=== PATIENT | female | born 1995 | race Caucasian/White ===

== ENCOUNTER 2022-05-11 06:20 | Emergency (ER) | payer MEDICAID, OTHER ==
[~2022-05-11] VITALS: Ht 170.2 cm; Wt 65.8 kg
[2022-05-11 07:00] LABS: BASOPHILS # (AUTO) 0.1 10^3/uL (0.0-0.1); BASOPHILS % (AUTO) 1 % (0-10); EOSINOPHILS # (AUTO) 0.1 10^3/uL (0.0-0.3); EOSINOPHILS % (AUTO) 1 % (0-10); HEMATOCRIT 36 % (35-52); HEMOGLOBIN 12.6 g/dL (11.5-16.0); LYMPHOCYTES # (AUTO) 2.9 10^3/uL (1.0-4.0); LYMPHOCYTES % (AUTO) 23 % (12-44); MEAN CORPUSCULAR HEMOGLOBIN 30 pg (25-34); MEAN CORPUSCULAR HGB CONC 35 g/dL (32-36); MEAN CORPUSCULAR VOLUME 86 fL (80-99); MEAN PLATELET VOLUME 9.1 fL (9.0-12.2); MONOCYTES # (AUTO) 0.7 10^3/uL (0.0-1.0); MONOCYTES % (AUTO) 6 % (0-12); NEUTROPHILS # (AUTO) 8.7 10^3/uL (1.8-7.8); NEUTROPHILS % (AUTO) 69 % (42-75); PLATELET COUNT 286 10^3/uL (130-400); WHITE BLOOD COUNT 12.6 10^3/uL (4.3-11.0)
[2022-05-11] MEDS ORDERED: LACTATED RINGERS 1,000 ML IV ONE (07:00)
[2022-05-11] MEDS ORDERED: ONDANSETRON 4 MG/2 ML (SDV) Z0FRAN IVP ONE (07:00)
[2022-05-11 07:09] LABS: POTASSIUM 3.7 MMOL/L (3.6-5.0)
[2022-05-11 07:11] LABS: CALCIUM 9.1 MG/DL (8.5-10.1)
[2022-05-11 07:12] LABS: TOTAL PROTEIN 7.2 GM/DL (6.4-8.2)
[2022-05-11 07:14] LABS: BILIRUBIN,TOTAL 0.4 MG/DL (0.1-1.0)
[2022-05-11 07:15] LABS: CREATININE SERUM 0.69 MG/DL (0.60-1.30)
[2022-05-11] MEDS ORDERED: fentaNYL INJ 100 MCG/2 ML AMP IVP ONE (07:15)
--- NOTE | 2022-05-11 07:19 | ED Abdominal Pain ---
General Chief Complaint: - Reproductive Stated Complaint: KIDNEY STONE,13 WKS PREG Nursing Triage Note: PT AMB TO RM 7 W C/O FLANK PAIN R/T KIDNEY STONES DX APPROX 4 WKS AGO. PT REPORTS PAIN HAS WORSENED SX 0800 YESTERDAY, LAST PO HYDROCODONE AT 0240 THIS AM. PT ALSO C/O N/V, A&OX4, APPROX 13 WKS . Source of Information: Patient Exam Limitations: No Limitations History of Present Illness Date Seen by Provider: May 11, 2022 Time Seen by Provider: 06:40 Initial Comments Patient to the ER by private conveyance with her significant other chief complaint that since about 8:00 yesterday she has had mounting pain not controlled by her hydrocodone. It is in her left flank and abdomen. It is associated with a kidney stone she has known about for about 4 weeks. Her kidney stone was originally diagnosed in [place] at the ER by CT and was measured at 5 mm in the proximal one third of her left ureter. She is with an LMP of 02/06/2022 putting her at 13 weeks and 3 days. She has a history of 1 miscarriage. No abdominal surgeries. No bowel symptoms. Her nausea has gotten so bad that she is not able to keep anything down despite Reglan that she was sent home with. She tried to follow-up with a urologist in [place] however he told her that it was 5 mm and should pass on its own and she would not have any procedures indicated until after her . She has been using hydrocodone every 6 hours which has been working well for her pain. She now rates it as about a 7-8 out of 10 and getting worse. Allergies and Home Medications Allergies Coded Allergies: No Known Drug Allergies (Unverified , 05/11/22) Patient Home Medication List Home Medication List Reviewed: Yes Cephalexin (Cephalexin) 500 Mg Tablet, 500 MG PO BID Prescribed by: AURELIA GARCIA on 05/11/22 0829 Hydrocodone/Acetaminophen (Hydrocodone-Acetamin 5-325 mg) 5 Mg-325 Mg Tablet, 1- 2 TAB PO Q6H PRN for PAIN-MODERATE (5-7) Prescribed by: AURELIA GARCIA on 05/11/22 0830 Ondansetron (Ondansetron Odt) 4 Mg Tab.rapdis, 4 MG PO Q6H PRN for NAUSEA/VOMITING Prescribed by: AURELIA GARCIA on 05/11/22 0829 Review of Systems Review of Systems Constitutional: No chills, No diaphoresis EENTM: No Blurred Vision, No Double Vision Respiratory: Denies Cough, Denies Shortness of Air Cardiovascular: Denies Chest Pain, Denies Lightheadedness Gastrointestinal: See HPI, Abdominal Pain; Denies Constipated, Denies Diarrhea; Nausea, Poor Fluid Intake, Vomiting Genitourinary: Denies Burning, Denies Discharge Musculoskeletal: No back pain, No joint pain All Other Systems Reviewed Negative Unless Noted: Yes Past Ioezyav-Qmcklc-Hmpqjm Hx Patient Social History Tobacco Use?: No Use of E-Cig and/or Vaping dev: No Substance use?: No Alcohol Use?: No Immunizations Up To Date Influenza Vaccine Up-to-Date: Yes; Up-to-Date First/Initial COVID19 Vaccinat: 2020 Second COVID19 Vaccination Zen: 2020 Third COVID19 Vaccination Date: 2020 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 oz. kg; 22.00 BMI Method: General Appearance: WD/WN, mild distress HEENT: PERRL/EOMI, pharynx normal Neck: full range of motion, normal inspection Respiratory: no respiratory distress, no accessory muscle use Cardiovascular: normal peripheral pulses, regular rate, rhythm Neurologic/Psychiatric: alert, normal mood/affect, oriented x 3 Skin: normal color, warm/dry Progress/Results/Core Measures Results/Orders Lab Results Laboratory Tests Test 05/11/22 06:40 05/11/22 07:50 Range/Units White Blood Count 12.6 H 4.3-11.0 10^3/uL Red Blood Count 4.16 3.80-5.11 10^6/uL Hemoglobin 12.6 11.5-16.0 g/dL Hematocrit 36 35-52 % Mean Corpuscular Volume 86 80-99 fL Mean Corpuscular Hemoglobin 30 25-34 pg Mean Corpuscular Hemoglobin Concent 35 32-36 g/dL Red Cell Distribution Width 13.0 10.0-14.5 % Platelet Count 286 130-400 10^3/uL Mean Platelet Volume 9.1 9.0-12.2 fL Immature Granulocyte % (Auto) 1 % Neutrophils (%) (Auto) 69 42-75 % Lymphocytes (%) (Auto) 23 12-44 % Monocytes (%) (Auto) 6 0-12 % Eosinophils (%) (Auto) 1 0-10 % Basophils (%) (Auto) 1 0-10 % Neutrophils # (Auto) 8.7 H 1.8-7.8 10^3/uL Lymphocytes # (Auto) 2.9 1.0-4.0 10^3/uL Monocytes # (Auto) 0.7 0.0-1.0 10^3/uL Eosinophils # (Auto) 0.1 0.0-0.3 10^3/uL Basophils # (Auto) 0.1 0.0-0.1 10^3/uL Immature Granulocyte # (Auto) 0.1 0.0-0.1 10^3/uL Sodium Level 133 L 135-145 MMOL/L Potassium Level 3.7 3.6-5.0 MMOL/L Chloride Level 106 98-107 MMOL/L Carbon Dioxide Level 18 L 21-32 MMOL/L Anion Gap 9 5-14 MMOL/L Blood Urea Nitrogen 9 7-18 MG/DL Creatinine 0.69 0.60-1.30 MG/DL Estimat Glomerular Filtration Rate 123 BUN/Creatinine Ratio 13 Glucose Level 95 70-105 MG/DL Calcium Level 9.1 8.5-10.1 MG/DL Corrected Calcium 9.1 8.5-10.1 MG/DL Total Bilirubin 0.4 0.1-1.0 MG/DL Aspartate Amino Transf (AST/SGOT) 21 5-34 U/L Alanine Aminotransferase (ALT/SGPT) 16 0-55 U/L Alkaline Phosphatase 55 40-136 U/L C-Reactive Protein High Sensitivity 1.12 H 0.00-0.50 MG/DL Total Protein 7.2 6.4-8.2 GM/DL Albumin 4.0 3.2-4.5 GM/DL Urine Color YELLOW Urine Clarity CLEAR Urine pH 6.5 5-9 Urine Specific [place] 1.010 L 1.016-1.022 Urine Protein NEGATIVE NEGATIVE Urine Glucose (UA) NEGATIVE NEGATIVE Urine Ketones NEGATIVE NEGATIVE Urine Nitrite NEGATIVE NEGATIVE Urine Bilirubin NEGATIVE NEGATIVE Urine Urobilinogen 0.2 < = 1.0 MG/DL Urine Leukocyte Esterase NEGATIVE NEGATIVE Urine RBC (Auto) 1+ H NEGATIVE Urine RBC 5-10 H /HPF Urine WBC 2-5 /HPF Urine Squamous Epithelial Cells 2-5 /HPF Urine Crystals NONE /LPF Urine Bacteria FEW H /HPF Urine Casts NONE /LPF Urine Mucus NEGATIVE /LPF Urine Culture Indicated YES My Orders Orders - AURELIA GARCIA Ua Culture If Indicated (05/11/22 06:30) Urine Bedside (05/11/22 06:30) Cbc With Automated Diff (05/11/22 06:53) Comprehensive Metabolic Panel (05/11/22 06:53) Hs C Reactive Protein (05/11/22 06:53) Ed Iv/Invasive Line Start (05/11/22 06:54) Lactated Ringers (Lr 1000 Ml Iv Solution (05/11/22 07:00) Ondansetron Injection (Zofran Injectio (05/11/22 07:00) Abdomen/Kub 1view (05/11/22 07:11) Fentanyl Inj (Sublimaze Injection) (05/11/22 07:15) Us Renal Limited [id number] (05/11/22 07:53) Ed Iv/Invasive Line Start (05/11/22 07:53) Urine Culture (05/11/22 07:50) Medications Given in ED Current Medications Medications Dose Ordered Sig/Hilda Route Start Time Stop Time Status Last Admin Dose Admin Fentanyl Citrate 50 mcg ONCE ONCE IVP 05/11/22 07:15 05/11/22 07:16 DC 05/11/22 07:30 50 MCG Lactated Ringer's 1,000 ml @ 0 mls/hr Q0M ONCE IV 05/11/22 07:00 05/11/22 07:01 DC 05/11/22 06:59 0 MLS/HR Ondansetron HCl 4 mg ONCE ONCE IVP 05/11/22 07:00 05/11/22 07:01 DC 05/11/22 06:59 4 MG Vital Signs/I&O 05/11/22 06:30 Temp 36.8 Pulse 89 Resp 20 B/P (MAP) 123/83 (96) Pulse Ox 97 O2 Delivery Room Air Blood Pressure Mean: 96 Progress Progress Note #1: Time: 07:18 Progress Note We will work to get her pain and nausea under control give her a liter of fluids and get a plain film to see if the kidney stone has moved. 50 mcg of fentanyl, 4 of IV ondansetron, lactated Ringer's 1 L. Progress Note #2: Time: 07:57 Progress Note Patient's pain is significant better. Nausea is gone. Her fluids are almost on. Her labs are reviewed. She has produced a urine but we have not seen the results yet. Her x-ray fails to demonstrate a calculus consistent with ureteral calculus. Suspect either the stone is moved and passed or we cannot see it so we will obtain ultrasound to look for secondary characteristics such as significant hydronephrosis/hydroureter. Other possibilities include a UTI which will be seen on urinalysis. Progress Note #3: Time: 08:30 Progress Note On subsequent exam the patient is feeling better. Her pain and nausea are under control. We are going to give her some fluids to try and drink. Ultrasound does not reveal significant hydroureter and the lack of x-ray evident ureteral calculus makes this provider suspect that she has passed and/or moved her stone. Expectations of been given. We are going to cover her with some antibiotics for a week to prevent infection and provide her with a new dosing for pain medication as well as ondansetron which seem to work well for her. Diagnostic Imaging Diagonstic Imaging: Xray Plain Films/CT/US/NM/MRI: abdomen (KUB 1 view) Comments NAME: CARMEL SWEET [facility] REC#: [id number] PT STATUS: REG ER : 1995 PHYSICIAN: AURELIA GARCIA MD ADMIT DATE: 05/11/22/ER Draft Date of Exam:05/11/22 ABDOMEN/KUB 1VIEW HISTORY: Abdominal pain COMPARISON: None TECHNIQUE: Frontal view the abdomen FINDINGS: Reportedly about 13 weeks . The patient and the ordering provider were aware and consent was given. No distended loops of bowel are seen. There is no large collection of free air. No calculi are identified in the region of the kidneys or the expected course of the ureters. No acute osseous abnormality is seen. IMPRESSION: 1. No acute abnormality is seen in the abdomen. Dictated on workstation # [id number] Dict: 05/11/22 0746 Trans: 05/11/22 0752 [facility] [id number] Interpreted by: JONO MADRIGAL MD Electronically signed by: Reviewed: Reviewed by Me Diagonstic Imaging: Ultrasound Plain Films/CT/US/NM/MRI: abdomen (Left kidney) Comments Mild amount of hydronephrosis but ureter was not well visualized by ultrasound. [facility] [place] NAME: CARMEL SWEET [facility] REC#: [id number] PT STATUS: REG ER : 1995 PHYSICIAN: AURELIA GARCIA MD ADMIT DATE: 05/11/22/ER Signed Date of Exam:05/11/22 US RENAL LIMITED [id number] US RENAL LIMITED [id number] INDICATION: Left kidney stone COMPARISON: None available. TECHNIQUE: Grayscale and color Doppler imaging of the left kidney was performed FINDINGS: There is mild separation of the renal sinus fat. No blunting of the calyces. No shadowing echogenic calculi or perinephric fluid collection on the left. IMPRESSION: Mild left hydronephrosis. Dictated by: Dictated on workstation # [id number] Dict: 05/11/22 0835 Trans: 05/11/22 0836 [facility] [id number] Interpreted by: ADELITA SWIFT MD Electronically signed by: ADELITA SWIFT MD 05/11/22835 Reviewed: Reviewed by Me Departure Impression Primary Impression: Kidney stone on left side Disposition: 01 HOME, SELF-CARE Condition: Stable Departure-Patient Inst. Decision time for Depature: 08:42 Referrals: NO,LOCAL PHYSICIAN (PCP/Family) Primary Care Physician Patient Instructions: Kidney Stones (DC) Add. Discharge Instructions: I cannot see the kidney stone today however given your significant pain it is very possible that the kidney stone has moved and passed or is about to pass. I suspect symptoms should improve over the next couple days. Hydrocodone 1 to 2 tablets every 6 hours as needed for severe pain. Ondansetron 1 tablet under the tongue every 6 hours needed for nausea or vomiting. Cephalexin twice daily to prevent or treat potential urinary tract infection. Make a follow-up appointment with either the LINEN ROOM CUSTODIAN or urologist. If your symptoms get out of control then I recommend that you return to the ER. All discharge instructions reviewed with patient and/or family. Voiced understanding. Scripts Cephalexin (Cephalexin) 500 Mg Tablet 500 MG PO BID for 7 Days, #14 TAB 0 Refills Prov: AURELIA GARCIA 05/11/22 Ondansetron (Ondansetron Odt) 4 Mg Tab.rapdis 4 MG PO Q6H PRN for NAUSEA/VOMITING, #10 TAB 0 Refills Prov: AURELIA GARCIA 05/11/22 Hydrocodone/Acetaminophen (Hydrocodone-Acetamin 5-325 mg) 5 Mg-325 Mg Tablet 1-2 TAB PO Q6H PRN for PAIN-MODERATE (5-7), #20 TAB 0 Refills Prov: AURELIA GARCIA 05/11/22 Work/School Note: Work Release Form Date Seen in the Emergency Department: May 11, 2022 Return to Work: May 13, 2022 Restrictions: No Restrictions AURELIA GARCIA May 11, 2022 07:19
--- NOTE | 2022-05-11 07:53 | Diagnostic Imaging Report ---
HISTORY: Abdominal pain COMPARISON: None TECHNIQUE: Frontal view the abdomen FINDINGS: Reportedly about 13 weeks . The patient and the ordering provider were aware and consent was given. No distended loops of bowel are seen. There is no large collection of free air. No calculi are identified in the region of the kidneys or the expected course of the ureters. No acute osseous abnormality is seen. IMPRESSION: 1. No acute abnormality is seen in the abdomen. Dictated by: Dictated on workstation # [id number]
[2022-05-11 07:59] LABS: BILIRUBIN,URINE NEGATIVE (NEGATIVE); CLARITY,URINE CLEAR; COLOR,URINE YELLOW; GLUCOSE, URINE (UA) NEGATIVE (NEGATIVE); KETONES,URINE NEGATIVE (NEGATIVE); LEUKOCYTE ESTERASE ,URINE NEGATIVE (NEGATIVE); NITRITE,URINE NEGATIVE (NEGATIVE); PH,URINE 6.5 (5-9); PROTEIN,URINE NEGATIVE (NEGATIVE)
[2022-05-11 08:20] LABS: BACTERIA,URINE FEW /HPF
[2022-05-11] MEDS ORDERED: CEPH500T PO (08:29)
[2022-05-11] MEDS ORDERED: ONDA4TAB11 PO (08:29)
[2022-05-11] MEDS ORDERED: ACHD5005 PO (08:29)
--- NOTE | 2022-05-11 08:37 | Diagnostic Imaging Report ---
US RENAL LIMITED [id number] INDICATION: Left kidney stone COMPARISON: None available. TECHNIQUE: Grayscale and color Doppler imaging of the left kidney was performed FINDINGS: There is mild separation of the renal sinus fat. No blunting of the calyces. No shadowing echogenic calculi or perinephric fluid collection on the left. IMPRESSION: Mild left hydronephrosis. Dictated by: Dictated on workstation # [id number]
[2022-05-11 08:50] VITALS: BP 108/68
== END 2022-05-11 08:49 | disposition home or self-care (01) ==
LOC: ER 06:25
DX: O26.831 Pregnancy related renal disease, first trimester (principal); N20.0 Calculus of kidney; Z3A.13 13 weeks gestation of pregnancy
CPT/HCPCS: 36415; 74018; 76775; 80053; 81000; 84703; 85025; 86141; 87088; 96361; 96374; 96375

== ENCOUNTER 2022-08-08 11:42 | Emergency (ER) | payer OTHER, MEDICAID ==
[~2022-08-08] VITALS: Ht 170 cm; Wt 68.0 kg
[~2022-08-08 11:42] MED LIST: ACHD5005 PO; CEPH500T PO; ONDA4TAB11 PO
[2022-08-08] MEDS ORDERED: LACTATED RINGERS 1,000 ML IV ONE (12:00)
[2022-08-08 12:05] LABS: BASOPHILS # (AUTO) 0.1 10^3/uL (0.0-0.1); BASOPHILS % (AUTO) 0 % (0-10); EOSINOPHILS # (AUTO) 0.2 10^3/uL (0.0-0.3); EOSINOPHILS % (AUTO) 1 % (0-10); HEMATOCRIT 37 % (35-52); LYMPHOCYTES # (AUTO) 2.3 10^3/uL (1.0-4.0); LYMPHOCYTES % (AUTO) 20 % (12-44); MEAN CORPUSCULAR HEMOGLOBIN 31 pg (25-34); MEAN CORPUSCULAR HGB CONC 35 g/dL (32-36); MEAN CORPUSCULAR VOLUME 87 fL (80-99); MEAN PLATELET VOLUME 9.2 fL (9.0-12.2); MONOCYTES # (AUTO) 0.8 10^3/uL (0.0-1.0); MONOCYTES % (AUTO) 7 % (0-12); NEUTROPHILS # (AUTO) 8.2 10^3/uL (1.8-7.8); NEUTROPHILS % (AUTO) 71 % (42-75); PLATELET COUNT 260 10^3/uL (130-400); WHITE BLOOD COUNT 11.6 10^3/uL (4.3-11.0)
[2022-08-08 12:17] LABS: ALBUMIN 3.6 GM/DL (3.2-4.5); POTASSIUM 3.7 MMOL/L (3.6-5.0)
[2022-08-08 12:18] LABS: CALCIUM 8.9 MG/DL (8.5-10.1)
[2022-08-08 12:19] LABS: TOTAL PROTEIN 7.1 GM/DL (6.4-8.2)
[2022-08-08 12:21] LABS: BILIRUBIN,TOTAL 0.5 MG/DL (0.1-1.0)
[2022-08-08 12:23] LABS: CREATININE SERUM 0.66 MG/DL (0.60-1.30)
[2022-08-08] MEDS ORDERED: PROMETHAZINE INJ 25 MG/ML (PHENERGAN) AMP IVP ONE (12:30)
[2022-08-08 12:48] LABS: MAGNESIUM 1.8 MG/DL (1.6-2.4)
[2022-08-08 12:57] LABS: BILIRUBIN,URINE NEGATIVE (NEGATIVE); CLARITY,URINE SL CLOUDY; COLOR,URINE YELLOW; GLUCOSE, URINE (UA) NEGATIVE (NEGATIVE); KETONES,URINE NEGATIVE (NEGATIVE); LEUKOCYTE ESTERASE ,URINE TRACE (NEGATIVE); NITRITE,URINE NEGATIVE (NEGATIVE); PH,URINE 5.5 (5-9); PROTEIN,URINE NEGATIVE (NEGATIVE)
--- NOTE | 2022-08-08 12:59 | ED General ---
General Chief Complaint: OB > 20 WEEKS Stated Complaint: LOW BLOOD PRESSURE/HIGH HEART RATE/CABALLERO/26 WKS PREG Nursing Triage Note: STATES SHE HAS BEEN SICK FOR A WEEK. WAS SEEN AT ANOTHER AND THEN AT [facility] TODAY. [facility] SENT HER HERE FOR A HIGH HEART RATE AND LOW BP. PT COMPLAINS OF A HEADACHE N/V. Source of Information: Patient Exam Limitations: No Limitations (WHIT MANE) History of Present Illness Date Seen by Provider: Aug 08, 2022 Time Seen by Provider: 12:20 Initial Comments This is a 27yo F, at 26.1wga who presents with chief complaint of flu like symptoms since Wednesday [id number]. Patient endorses nausea, vomiting, cough, congestion, fevers, chills, fatigue, and sinus pain. Endorses a new headache this morning at 9/10. Body ache has ceased, though other symptoms are still persistent. Currently feeling nauseated. Patient has not been able to maintain adequate fluid or food intake due nausea and vomiting. Reports she is urinating once a day with dark urine. 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 Had a negative COVID test yesterday, no recent influenza test. Had vomiting in her work parking lot today and found to be reported tachycardic and hypotensive, patient does not remember specific numbers. No complications during this and is still feeling baby move. Denies any abdominal pain, abdominal cramping, vaginal bleeding, or loss of fluid. Patient had a miscarriage May 2021 at 6wga. Patient has tried Tylenol 500mg x1 Q4hrs, Benadryl, Robitussin, Mucinex, Zyrtec, Flonase, and Nasal rinses without any improvement of symptoms. Dr. Artis is her [place] physician. Timing/Duration: 1 Week Severity: Severe Modifying Factors: improves with Other (Nothing has improved her symptoms) Associated Systoms: Cough, Diaphoresis, Fever/Chills, Headaches, Loss of Appetite, Malaise, Nausea/Vomiting, Weakness (WHIT MANE) Allergies and Home Medications Allergies Coded Allergies: No Known Drug Allergies (Unverified , 05/11/22) Patient Home Medication List Home Medication List Reviewed: Yes (WHIT MANE) Amoxicillin (Amoxicillin) 500 Mg Capsule, 1,000 MG PO BID Prescribed by: JONO GIL on 08/08/22 1342 Cephalexin (Cephalexin) 500 Mg Tablet, 500 MG PO BID Prescribed by: AURELIA GARCIA on 05/11/22 0829 Hydrocodone/Acetaminophen (Hydrocodone-Acetamin 5-325 mg) 5 Mg-325 Mg Tablet, 1- 2 TAB PO Q6H PRN for PAIN-MODERATE (5-7) Prescribed by: AURELIA GARCIA on 05/11/22 0830 Hydrocodone/Acetaminophen (Hydrocodone-Acetamin 5-325 mg) 5 Mg-325 Mg Tablet, 1 TAB PO Q6H PRN for PAIN-SEVERE (8-10) Prescribed by: JONO GIL on 08/08/22 1342 Ondansetron (Ondansetron Odt) 4 Mg Tab.rapdis, 4 MG PO Q6H PRN for NAUSEA/VOMITING Prescribed by: AURELIA GARCIA on 05/11/22 0829 Promethazine HCl (Promethazine Tablet) 25 Mg Tablet, 25 MG PO Q6H PRN for NAUS EA/VOMITING Prescribed by: JONO GIL on 08/08/22 1342 Review of Systems Review of Systems Constitutional: chills, diaphoresis; No dizziness; fever, malaise, weakness EENTM: ear pain, nose congestion Respiratory: cough; No dyspnea on exertion, No hemoptysis, No orthopnea; phlegm (yellow/green), short of breath; No stridor, No wheezing Cardiovascular: no symptoms reported Gastrointestinal: no symptoms reported Genitourinary: decreased output; No discharge, No dysuria, No hematuria : Yes Expected Date of Delivery: Nov 13, 2022 (WHIT MANE) Past Ptnouez-Eifcfx-Rrreso Hx Patient Social History Tobacco Use?: No Use of E-Cig and/or Vaping dev: No Substance use?: No (WHIT MANE) Immunizations Up To Date First/Initial COVID19 Vaccinat: 2020 Second COVID19 Vaccination Zen: 2020 Third COVID19 Vaccination Date: 2020 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 oz. kg; 23.00 BMI Method: General Appearance: No Apparent Distress (acutely ill appearing and lying comfortably in a dark room) HEENT: PERRL/EOMI, TMs Normal, Normal ENT Inspection, Pharynx Normal, Other (Pain with palpation of frontal and maxillary sinuses) Neck: Full Range of Motion, Normal Inspection, Non Tender, Supple Respiratory: Chest Non Tender, Lungs Clear, Normal Breath Sounds, No Accessory Muscle Use, No Respiratory Distress Cardiovascular: No Murmur, Tachycardia (HR 101) Gastrointestinal: Non Tender, Soft, Other (Gravid abdomen) Extremity: Normal Capillary Refill, Normal Inspection Neurologic/Psychiatric: Alert, Oriented x3, No Motor/Sensory Deficits, Normal Mood/Affect Skin: Normal Color, Warm/Dry (WHIT MANE) Progress/Results/Core Measures Suspected Sepsis SIRS Temperature: Pulse: 119 Respiratory Rate: 16 Laboratory Tests 08/08/22 11:55: White Blood Count 11.6H Blood Pressure 132 /87 Mean: 102 Laboratory Tests 08/08/22 11:55: Creatinine 0.66, Platelet Count 260, Total Bilirubin 0.5 (WHIT MANE) Results/Orders Lab Results Laboratory Tests Test 08/08/22 11:55 08/08/22 11:59 08/08/22 12:49 Range/Units White Blood Count 11.6 H 4.3-11.0 10^3/uL Red Blood Count 4.22 3.80-5.11 10^6/uL Hemoglobin 13.0 11.5-16.0 g/dL Hematocrit 37 35-52 % Mean Corpuscular Volume 87 80-99 fL Mean Corpuscular Hemoglobin 31 25-34 pg Mean Corpuscular Hemoglobin Concent 35 32-36 g/dL Red Cell Distribution Width 13.0 10.0-14.5 % Platelet Count 260 130-400 10^3/uL Mean Platelet Volume 9.2 9.0-12.2 fL Immature Granulocyte % (Auto) 1 % Neutrophils (%) (Auto) 71 42-75 % Lymphocytes (%) (Auto) 20 12-44 % Monocytes (%) (Auto) 7 0-12 % Eosinophils (%) (Auto) 1 0-10 % Basophils (%) (Auto) 0 0-10 % Neutrophils # (Auto) 8.2 H 1.8-7.8 10^3/uL Lymphocytes # (Auto) 2.3 1.0-4.0 10^3/uL Monocytes # (Auto) 0.8 0.0-1.0 10^3/uL Eosinophils # (Auto) 0.2 0.0-0.3 10^3/uL Basophils # (Auto) 0.1 0.0-0.1 10^3/uL Immature Granulocyte # (Auto) 0.1 0.0-0.1 10^3/uL Sodium Level 136 135-145 MMOL/L Potassium Level 3.7 3.6-5.0 MMOL/L Chloride Level 109 H 98-107 MMOL/L Carbon Dioxide Level 18 L 21-32 MMOL/L Anion Gap 9 5-14 MMOL/L Blood Urea Nitrogen 7 7-18 MG/DL Creatinine 0.66 0.60-1.30 MG/DL Estimat Glomerular Filtration Rate 125 BUN/Creatinine Ratio 11 Glucose Level 99 70-105 MG/DL Calcium Level 8.9 8.5-10.1 MG/DL Corrected Calcium 9.2 8.5-10.1 MG/DL Magnesium Level 1.8 1.6-2.4 MG/DL Total Bilirubin 0.5 0.1-1.0 MG/DL Aspartate Amino Transf (AST/SGOT) 17 5-34 U/L Alanine Aminotransferase (ALT/SGPT) 13 0-55 U/L Alkaline Phosphatase 97 40-136 U/L C-Reactive Protein High Sensitivity 10.85 H 0.00-0.50 MG/DL Total Protein 7.1 6.4-8.2 GM/DL Albumin 3.6 3.2-4.5 GM/DL Influenza Type A (RT-PCR) Not Detected Not Detecte Influenza Type B (RT-PCR) Not Detected Not Detecte SARS-CoV-2 RNA (RT-PCR) Not Detected Not Detecte Urine Color YELLOW Urine Clarity SL CLOUDY Urine pH 5.5 5-9 Urine Specific [place] 1.025 H 1.016-1.022 Urine Protein NEGATIVE NEGATIVE Urine Glucose (UA) NEGATIVE NEGATIVE Urine Ketones NEGATIVE NEGATIVE Urine Nitrite NEGATIVE NEGATIVE Urine Bilirubin NEGATIVE NEGATIVE Urine Urobilinogen 1.0 < = 1.0 MG/DL Urine Leukocyte Esterase TRACE H NEGATIVE Urine RBC (Auto) NEGATIVE NEGATIVE Urine RBC NONE /HPF Urine WBC 2-5 /HPF Urine Squamous Epithelial Cells 5-10 /HPF Urine Crystals NONE /LPF Urine Bacteria FEW H /HPF Urine Casts NONE /LPF Urine Mucus SMALL H /LPF Urine Culture Indicated YES (JONO SIEGEL MD) My Orders Orders - JONO SIEGEL MD Cbc With Automated Diff (08/08/22 11:49) Comprehensive Metabolic Panel (08/08/22 11:49) Ua Culture If Indicated (08/08/22 11:49) Ed Iv/Invasive Line Start (08/08/22 11:49) Lactated Ringers (Lr 1000 Ml Iv Solution (08/08/22 12:00) Covid 19 Inhouse Test (08/08/22 11:49) Influenza A And B By Pcr (08/08/22 11:49) Magnesium (08/08/22 12:24) Hs C Reactive Protein (08/08/22 12:24) Promethazine Injection (Phenergan Injec (08/08/22 12:30) Urine Culture (08/08/22 12:49) (JONO SIEGEL MD) Medications Given in ED Current Medications Medications Dose Ordered Sig/Hilda Route Start Time Stop Time Status Last Admin Dose Admin Lactated Ringer's 1,000 ml @ 0 mls/hr Q0M ONCE IV 08/08/22 12:00 08/08/22 12:01 DC 08/08/22 12:07 1,000 MLS/HR Promethazine HCl 25 mg ONCE ONCE IVP 08/08/22 12:30 08/08/22 12:31 DC 08/08/22 12:36 25 MG (JONO SIEGEL MD) Vital Signs/I&O 08/08/22 11:50 Temp 37.1 Pulse 119 Resp 16 B/P (MAP) 132/87 (102) Pulse Ox 98 O2 Delivery Room Air (JONO SIEGEL MD) Vital Signs/I&O Capillary Refill : Less Than 3 Seconds (WHIT MANE) Blood Pressure Mean: 102 Progress Note : Progress Note heart tones 168 (JONO SIEGEL MD) Departure Impression Primary Impression: Acute sinusitis Qualified Codes: J01.10 - Acute frontal sinusitis, unspecified Additional Impressions: Flu-like symptoms Nausea & vomiting Qualified Codes: R11.2 - Nausea with vomiting, unspecified Disposition: 01 HOME, SELF-CARE Condition: Improved Departure-Patient Inst. Decision time for Depature: 13:38 (JONO SIEGEL MD) Referrals: RACHEL BURCIAGA APRN (PCP/Family) Primary Care Physician Patient Instructions: Sinusitis in Adults Add. Discharge Instructions: You may use Afrin nasal spray provided from the emergency room for a maximum of 3 days (6 doses). Use 1 or 2 sprays per nostril twice daily to treat congestion. You may use the albuterol inhaler up to 4 puffs in a 4-hour period of time for uncontrolled cough or wheezing. Complete your antibiotics as prescribed. Start the oral antibiotics tomorrow afternoon. Use Phenergan (promethazine) as prescribed for nausea and vomiting. 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 If offices are closed on Wednesday, please call on Wednesday. Use Tylenol (acetaminophen) up to 1000 mg every 6 hours as needed for mild to moderate pain. For severe pain you may use the hydrocodone as prescribed. Return to care if you have worsening symptoms despite following these instructions. All discharge instructions reviewed with patient and/or family. Voiced understanding. Scripts Promethazine HCl (Promethazine Tablet) 25 Mg Tablet 25 MG PO Q6H PRN for NAUSEA/VOMITING, #10 TAB Prov: JONO SIEGEL MD 08/08/22 Hydrocodone/Acetaminophen (Hydrocodone-Acetamin 5-325 mg) 5 Mg-325 Mg Tablet 1 TAB PO Q6H PRN for PAIN-SEVERE (8-10), #5 TAB Prov: JONO SIEGEL MD 08/08/22 Amoxicillin (Amoxicillin) 500 Mg Capsule 1000 MG PO BID, #40 CAP 0 Refills Prov: JONO SIEGEL MD 08/08/22 WHIT MANE Aug 08, 2022 12:59 JONO SIEGEL MD Aug 08, 2022 13:42
[2022-08-08 13:04] LABS: BACTERIA,URINE FEW /HPF
[2022-08-08] MEDS ORDERED: cefTRIAXone 1 GM PRE-MIX 50 ML IV STA (13:34)
[2022-08-08] MEDS ORDERED: OXYMETAZOLINE (AFRIN) 0.05% NA 30 ML BTL STA (13:34)
[2022-08-08] MEDS ORDERED: PROM25TA14 PO (13:42)
[2022-08-08] MEDS ORDERED: ACHD5005 PO (13:42)
[2022-08-08] MEDS ORDERED: AMOX500C2 PO (13:42)
[2022-08-08] MEDS ORDERED: fentaNYL INJ 100 MCG/2 ML AMP IVP ONE (13:45)
[2022-08-08] MEDS ORDERED: RT-ALBUTEROL HFA 8.5 GM INHALER IH ONE (14:00)
[2022-08-08] MEDS ORDERED: KETOROLAC 30 MG/ML VIAL IVP ONE (14:30)
[2022-08-08] MEDS ORDERED: ONDANSETRON 4 MG/2 ML (SDV) Z0FRAN IVP ONE (14:30)
[2022-08-08 14:56] VITALS: BP 106/64
== END 2022-08-08 14:56 | disposition home or self-care (01) ==
LOC: EDUNIT# 11:42 → ER 11:48
DX: O21.9 Vomiting of pregnancy, unspecified (principal); O99.512 Diseases of the respiratory system complicating pregnancy, second trimester; J01.90 Acute sinusitis, unspecified; Z3A.26 26 weeks gestation of pregnancy; Z20.822 Contact with and (suspected) exposure to COVID-19
CPT/HCPCS: 36415; 80053; 81000; 83735; 85025; 86141; 87088; 87636; 96374; 96375

== ENCOUNTER 2023-05-07 13:22 | Outpatient (CLI) | payer OTHER, MEDICAID ==
[~2023-05-07] VITALS: Ht 167.7 cm; Wt 72.7 kg
[~2023-05-07 13:22] MED LIST changes: +AMOX500C2 PO; +PROM25TA14 PO
[2023-05-07] MEDS ORDERED: CITA40TA13 PO (14:03)
[2023-05-17] MEDS ORDERED: ACHD5005 PO (11:36)
== END 2023-05-07 14:20 | disposition home or self-care (01) ==
LOC: PREOP 13:22
PROVIDERS: ATTEND Podiatrist Foot & Ankle Surgery
DX: Z01.818 Encounter for other preprocedural examination (principal)

== ENCOUNTER 2023-05-17 09:07 | Day surgery (SDC) | payer OTHER, MEDICAID ==
[2023-05-17] VITALS (10 sets, daily range): BP systolic 107–118; BP diastolic 67–84
[~2023-05-17] VITALS: Ht 167.7 cm; Wt 72.7 kg
[~2023-05-17 09:07] MED LIST changes: +CITA40TA13 PO
[2023-05-17] MEDS ORDERED: LACTATED RINGERS 1,000 ML 1,000 ML IV PRN (09:15)
[2023-05-17] MEDS ORDERED: ceFAZolin INJECTION 1,000 MG in NS (IVPB) 50 ML 50 ML IV ONE (09:15)
[2023-05-17] MEDS ORDERED: dexAMETHasone INJ 10 MG/ML 1 ML VIAL ONE (09:39)
[2023-05-17] MEDS ORDERED: LIDOCAINE 1% INJ 20 ML VIAL ONE (09:40)
[2023-05-17] MEDS ORDERED: BUPIVACAINE 0.5% 10 ML VIAL ONE (09:40)
[2023-05-17] MEDS ORDERED: ONDANSETRON INJECTION 4 MG/2 ML (SDV) ONE (09:49)
[2023-05-17] MEDS ORDERED: proPOfol INJECTION 200 MG/20 ML VIAL IV ONE (09:49)
[2023-05-17] MEDS ORDERED: fentaNYL INJECTION 100 MCG/2 ML VIAL ONE (09:49)
[2023-05-17] MEDS ORDERED: LIDOCAINE PF 2% 5 ML VIAL ONE (09:49)
[2023-05-17] MEDS ORDERED: MIDAZOLAM INJ 2 MG/2 ML VIAL ONE (09:49)
--- NOTE | 2023-05-17 10:21 | Progress Note-Pre Operative ---
Pre-Operative Progress Note Date of Available H&P: May 17, 2023 Date H&P Reviewed: May 17, 2023 Time H&P Reviewed: 10:21 Pre-Operative Diagnosis: Failed hardware, right foot MARISEL SHUKLA DPFlaco May 17, 2023 10:21
[2023-05-17] MEDS ORDERED: BUPIVACAINE 0.5% 30 ML VIAL INJ ONE (10:50)
[2023-05-17] MEDS ORDERED: LIDOCAINE 1% INJ 20 ML VIAL INJ ONE (10:51)
[2023-05-17] MEDS ORDERED: SEVOFLURANE (ULTANE) 15 ML INHAL SOLN ONE (11:26)
--- NOTE | 2023-05-17 11:34 | Progress Note-Post Operative ---
Post-Operative Progess Note Surgeon (s)/Newborn Hearing Screener (s) Surgeon MARISEL SHUKLA DPM Newborn Hearing Screener: none Pre-Operative Diagnosis Failed hardware, right foot Post-Operative Diagnosis same Procedure & Operative Findings Date of Procedure 05/17/23 Procedure Performed/Findings removal of hardware, right foot Anesthesia Type general Estimated Blood Loss Estimated blood loss (mL): minimal Specimens/Packing Specimens Removed two screws MARISEL SHUKLA DPM May 17, 2023 11:34
[2023-05-17] MEDS ORDERED: ACHD5005 PO (11:36)
[2023-05-17] MEDS ORDERED: KETOROLAC INJ 30 MG/ML VIAL ONE (11:40)
[2023-05-17] MEDS ORDERED: HYDROcodone/ACETAMINOPHEN 5 MG/325 MG TABLET PO PRN (11:45)
[2023-05-17] MEDS ORDERED: LACTATED RINGERS 1,000 ML 1,000 ML IV SCH (11:45)
--- NOTE | 2023-05-17 21:58 | OPERATIVE REPORT ---
DATE OF SERVICE: 05/17/2023 SURGEON: Luisa Shukla DPM. PREOPERATIVE DIAGNOSIS: Failed hardware, right foot. POSTOPERATIVE DIAGNOSIS: Failed hardware, right foot. PROCEDURE: Removal of hardware, right foot. WOUND CLASS: Clean. ANESTHESIA: General. HEMOSTASIS: Pneumatic ankle tourniquet at 250 mmHg. INDICATIONS: This is a 28-year-old female, who presents complaining of pain to the dorsal aspect of the right first metatarsal cuneiform joint area. This has been a persistent problem. X-rays were taken, which revealed an internal fixation screw backing out and becoming more prominent. The patient has had swelling and pain to this area without relief and surgical options were chosen after risks and complications were discussed at length. DESCRIPTION OF PROCEDURE: The patient was brought back to the operating table and placed in secure supine position. General anesthetic was then induced. Appropriate timeout was performed. Pneumatic ankle tourniquet was applied to the right lower extremity over several layers of padding. Local anesthetic was then induced to the right foot around the first metatarsal cuneiform area utilizing 10 mL of 1:1 mixture of 1% Xylocaine and 0.5% Marcaine. Next, the right foot was then prepped and draped in normal sterile manner. The right foot was then elevated allowed to exsanguinate after which the tourniquet was inflated to 250 mmHg. Attention was then directed to the dorsal aspect of the right first metatarsal cuneiform joint. A 2.5 cm longitudinal linear incision was created. The incision was deepened down in the same plane with great care to identify and retract all vital neurovascular structures. To the medial aspect of the incision was some serous fluid underneath some significant scar tissue. No abscess, no necrosis or gross signs of bacterial infection were identified. Underneath this clear fluid was the head of a cannulated screw. The screw was backed out completely and removed from the foot. The wound was flushed with copious amounts of normal saline. Just lateral to this was a second screw looked like a 4.0 screw. The second screw was buried in bone quite a bit more significantly after utilizing an osteotome and mallet, the head was revealed and a second screw was able to be backed out of the first metatarsal cuneiform arthrodesis site. Intraoperative C-arm confirmed the placement and also removal of the hardware. The excessive scar tissue overlying this area was sharply debrided. The area was cleansed thoroughly after which closure was then performed in layers. Deep closure was performed with a 3-0 Vicryl, superficial with 4-0 Vicryl and skin closure with 4-0 Prolene in a horizontal mattress type stitch. Postoperative dressing consisted of Betadine-soaked Adaptic, sterile 4 x 4's, sterile Kerlix, all secured with a Coban wrap. The patient tolerated the anesthesia and procedure well and was transported from the operating room to the recovery room with vital signs stable and vascular status intact to all digits of the right foot. She is to limit weightbearing to her tolerance. We will see her in the office in 10 days for removal of the dressing and sutures. Job ID: [id number] DocumentID: [id number] Dictated Date: 05/17/2023 11:42:55 Ethnoarchaeology Professor Date: 05/17/2023 21:56:00 Dictated By: LUISA SHUKLA DPM
== END 2023-05-17 13:30 | disposition home or self-care (01) ==
LOC: SDC 09:07
PROVIDERS: ATTEND Podiatrist Foot & Ankle Surgery
DX: T84.293A Other mechanical complication of internal fixation device of bones of foot and toes, initial encounter (principal)
CPT/HCPCS: 84703; 87081